=== PATIENT | female | born 1985 | race Caucasian/White ===

== ENCOUNTER → 2016-07-20 | Outpatient (CLI) | payer OTHER ==
[~2016-07-20] MED LIST: FISHCAP PO; IBUP-1114 PO; IBUP80TA PO; OMEGCAP9 PO; PERC5TAB6 PO; PNVTAB4 PO; PRENTAB45 PO; VITA-108 PO; VITACAP33 PO; VITAPRTA PO
== END ==
LOC: M LAB 13:01
PROVIDERS: ATTEND Specialist
DX: N91.2 Amenorrhea, unspecified (principal)

== ENCOUNTER → 2016-09-01 | Outpatient (REF) | payer OTHER | LOC: M LAB REF 13:08 | PROVIDERS: ATTEND Specialist | DX: R87.610 Atypical squamous cells of undetermined significance on cytologic smear of cervix (ASC-US) (principal) ==

== ENCOUNTER → 2018-01-19 | Outpatient (REF) | payer OTHER ==
[2018-01-22 09:05] LABS: Lyme Disease IgG/IgM Antibodie <0.91 ISR (0.00-0.90); Lyme Disease IgM Ab Quantitati <0.80 index (0.00-0.79)
== END ==
LOC: M LABNEURO 13:00
DX: A69.20 Lyme disease, unspecified (principal)

== ENCOUNTER → 2018-10-10 | Outpatient (REF) | payer OTHER ==
[~2018-10-10] MED LIST changes: +CHEW500C2 PO; +PERC5TAB12 PO; -PERC5TAB6 PO; +VITA100L PO
[2018-10-10 17:36] LABS: APPEARANCE, URINE CLEAR (CLEAR); BACTERIA, URINE AUTO NEGATIVE (NEGATIVE); BILIRUBIN, URINE AUTO NEGATIVE (NEGATIVE); BLOOD, URINE BLOOD 1+ (NEGATIVE); COLOR, URINE YELLOW (YELLOW); GLUCOSE, URINE (UA) AUTO NEGATIVE (NEGATIVE); KETONE, URINE AUTO NEGATIVE (NEGATIVE); LEUKOCYTE ESTERASE, URINE AUTO 1+ (NEGATIVE); NITRITE, URINE AUTO NEGATIVE (NEGATIVE); PROTEIN, URINE AUTO NEGATIVE (NEGATIVE); RBC, URINE AUTO 3 /HPF (0-3); SPECIFIC GRAVITY URINE AUTO 1.014 (1.002-1.035); SQUAMOUS EPITHELIAL CELL UR AU 0 /HPF (0-6); UROBILINOGEN, URINE AUTO 0.2 mg/dL (0.0-2.0); WBC, URINE AUTO 14 /HPF (0-3)
== END ==
LOC: M LAB REF 16:54
PROVIDERS: ATTEND Physician Assistant Medical
DX: N39.0 Urinary tract infection, site not specified (principal)

== ENCOUNTER → 2019-07-18 | Outpatient (REF) | payer OTHER ==
[~2019-07-18] MED LIST changes: +MULTCAP PO
[2019-07-18 16:02] LABS: URINE PREG TEST NEGATIVE (NEGATIVE)
== END ==
LOC: M LAB REF 14:18
PROVIDERS: ATTEND Physician Assistant
DX: Z00.00 Encounter for general adult medical examination without abnormal findings (principal)

== ENCOUNTER → 2019-07-24 | Outpatient (REF) | payer OTHER | LOC: M SFHCWAGY 16:45 | PROVIDERS: ATTEND Advanced Practice Midwife | DX: Z12.4 Encounter for screening for malignant neoplasm of cervix (principal) ==

== ENCOUNTER 2020-11-02 17:17 | Emergency (ER) | payer OTHER ==
[~2020-11-02] VITALS: Ht 175.3 cm; Wt 110.4 kg
[~2020-11-02 17:17] MED LIST changes: +CALC-362 PO; -CHEW500C2 PO
[2020-11-02] MEDS ORDERED: ESTA0.25 PO (17:32)
[2020-11-02] MEDS ORDERED: LIDOCAINE 1% MDV 20ML VIAL SC ONE (18:05)
[2020-11-02] MEDS ORDERED: BOOSTRIX/ADACEL VACCINE (DIPHTH/PERTUSS/ACELL/TETANUS) 0.5ML SYR IM ONE (18:05)
[2020-11-02] MEDS ORDERED: ONDANSETRON 4 MG ORAL DISINTEGRATING TAB PO ONE (18:05)
[2020-11-02] MEDS ORDERED: IBUPROFEN 600MG TAB PO ONE (18:05)
[2020-11-02] MEDS ORDERED: NEOSPORIN OINT 0.9 GM PKT TOP ONE (18:40)
[2020-11-02 18:57] VITALS: BP 140/86
== END 2020-11-02 19:10 | disposition home or self-care (01) ==
LOC: M ED 17:17
DX: S61.012A Laceration without foreign body of left thumb without damage to nail, initial encounter (principal); X58.XXXA Exposure to other specified factors, initial encounter; Y92.009 Unspecified place in unspecified non-institutional (private) residence as the place of occurrence of the external cause; Y93.89 Activity, other specified; Y99.9 Unspecified external cause status; J45.909 Unspecified asthma, uncomplicated; Z79.899 Other long term (current) drug therapy; Z79.3 Long term (current) use of hormonal contraceptives; Z88.8 Allergy status to other drugs, medicaments and biological substances
CPT/HCPCS: 12001; 90471; 90715; 99284; Q0162

== ENCOUNTER → 2021-04-17 | Outpatient (CLI) | payer OTHER ==
[~2021-04-17] MED LIST changes: +ESTA0.25 PO
--- NOTE | 2021-04-17 16:36 | REPMRS ---
Patient History The patient states she had a clinical breast exam in september 2020. No known family history of cancer. Taking hormonal contraceptives for 5 years. Pt denied . Patient states no breast complaints today. Patient has signed MRS History Sheet. Digital Woman Screen Mammo: April 17, 2021 - Exam #: [id number] Bilateral CC and MLO view(s) were taken. Technologist: Ling Breen, RT No prior studies available for comparison. FINDINGS: There are scattered fibroglandular densities. The Volpara volumetric breast density category is: B. There is no evidence of dominant mass, architectural distortion, or grouped microcalcification typical of malignancy. 3-D tomosynthesis shows no additional findings. Assessment: BI-RADS/ACR category 1 mammogram. Negative Mammogram. Recommendation Routine screening mammogram of both breasts in 1 year (for women over age 40). This patient's [facility] Lifetime Breast Cancer RIsk is estimated at 9.2 %. This mammogram was interpreted with the aid of an FDA-approved computer-aided dectection system. Electronically Signed By: Joss Grider MD 04/17/21 0105
== END ==
LOC: M WHC 15:20
PROVIDERS: ATTEND Specialist
DX: Z12.31 Encounter for screening mammogram for malignant neoplasm of breast (principal)

== ENCOUNTER → 2021-05-25 | Outpatient (REF) | payer OTHER | LOC: M SFHCWAGY 18:30 | PROVIDERS: ATTEND Specialist | DX: Z01.419 Encounter for gynecological examination (general) (routine) without abnormal findings (principal) ==

== ENCOUNTER → 2021-11-18 | Outpatient (CLI) | payer OTHER ==
[~2021-11-18] MED LIST changes: +PROHANCE 279.3MG/ML 15ML VIAL As Ordered ONE; +PROHANCE 279.3MG/ML 5ML VIAL As Ordered ONE
== END ==
LOC: M RAD 15:37
PROVIDERS: ATTEND Nurse Practitioner Family
DX: R51.9 Headache, unspecified (principal)
CPT/HCPCS: 70553; A9576

== ENCOUNTER → 2021-12-14 | Outpatient (CLI) | payer OTHER ==
[~2021-12-14] MED LIST changes: -PROHANCE 279.3MG/ML 15ML VIAL As Ordered ONE; -PROHANCE 279.3MG/ML 5ML VIAL As Ordered ONE
== END ==
LOC: M SLEEP HO 10:06
PROVIDERS: ATTEND Nurse Practitioner Family
DX: G47.00 Insomnia, unspecified (principal)

== ENCOUNTER 2022-09-23 11:31 | Emergency (ER) | payer OTHER ==
[~2022-09-23] VITALS: Ht 175.3 cm; Wt 113.3 kg
[2022-09-23] MEDS ORDERED: PRENTAB9 PO (11:50)
[2022-09-23] MEDS ORDERED: CETI-24 (11:50)
[2022-09-23] MEDS ORDERED: FLUTISP (11:50)
[2022-09-23 12:33] LABS: BASO % 0.3 % (0.0-1.0); EOS # 0.1 10^3/uL (0.0-0.5); EOS % 0.8 % (0.0-3.0); HEMATOCRIT 41.6 % (36.0-47.0); HEMOGLOBIN 13.2 g/dl (12.0-15.5); LYMPH # 1.9 10^3/uL (1.5-5.0); LYMPH % 29.8 % (24.0-44.0); MEAN CORPUSCULAR HEMOGLOBIN 27.2 pg (27.0-33.0); MEAN CORPUSCULAR HGB CONC 31.7 g/dl (32.0-36.5); MEAN CORPUSCULAR VOLUME 85.6 fl (80.0-96.0); MONO # 0.4 10^3/uL (0.0-0.8); MONO % 6.1 % (2.0-8.0); NEUTROPHILS # 3.9 10^3/uL (1.5-8.5); NEUTROPHILS % 62.7 % (36.0-66.0); PLATELET COUNT, AUTOMATED 244 10^3/uL (150-450); RED BLOOD COUNT 4.86 10^6/uL (4.00-5.40); WHITE BLOOD COUNT 6.2 10^3/uL (4.0-10.0)
[2022-09-23 13:02] LABS: BLOOD UREA NITROGEN 8 MG/DL (9-23); CALCIUM LEVEL 9.1 MG/DL (8.5-10.1); CARBON DIOXIDE LEVEL 28 MMOL/L (20-31); CHLORIDE LEVEL 105 MMOL/L (98-107); CREATININE FOR GFR 0.56 MG/DL (0.55-1.30); GLOMERULAR FILTRATION RATE > 60.0 (>60); GLUCOSE, FASTING 90 MG/DL (60-100); SODIUM LEVEL 140 MMOL/L (136-145)
[2022-09-23 13:16] LABS: HCG, SERUM QUANTITATIVE 4587.2 MIU/ML (<4.2)
[2022-09-23] MEDS ORDERED: ACETAMINOPHEN 500 MG TAB PO ONE (16:55)
[2022-09-23 17:50] LABS: BASO % 0.4 % (0.0-1.0); EOS # 0.1 10^3/uL (0.0-0.5); EOS % 0.9 % (0.0-3.0); HEMATOCRIT 40.4 % (36.0-47.0); HEMOGLOBIN 13.1 g/dl (12.0-15.5); LYMPH # 2.4 10^3/uL (1.5-5.0); MEAN CORPUSCULAR HEMOGLOBIN 27.5 pg (27.0-33.0); MEAN CORPUSCULAR HGB CONC 32.4 g/dl (32.0-36.5); MEAN CORPUSCULAR VOLUME 84.9 fl (80.0-96.0); MONO # 0.5 10^3/uL (0.0-0.8); MONO % 5.8 % (2.0-8.0); NEUTROPHILS % 62.6 % (36.0-66.0); PLATELET COUNT, AUTOMATED 252 10^3/uL (150-450); RED BLOOD COUNT 4.76 10^6/uL (4.00-5.40)
[2022-09-23] MEDS ORDERED: NS 1,000 ML IV ONE (20:05)
[2022-09-23 21:36] VITALS: BP 137/63
== END 2022-09-23 21:36 | disposition home or self-care (01) ==
LOC: M ED 11:31
DX: O20.8 Other hemorrhage in early pregnancy (principal); Z3A.01 Less than 8 weeks gestation of pregnancy

== ENCOUNTER → 2022-09-24 | Outpatient (CLI) | payer OTHER ==
[~2022-09-24] MED LIST changes: +CETI-24; +FLUTISP; +PRENTAB9 PO
== END ==
LOC: M PLALAB 12:56
PROVIDERS: ATTEND Specialist
DX: O00.90 Unspecified ectopic pregnancy without intrauterine pregnancy (principal)

== ENCOUNTER → 2022-09-29 | Outpatient (CLI) | payer OTHER | LOC: M PLALAB 13:12 | PROVIDERS: ATTEND Specialist | DX: N92.6 Irregular menstruation, unspecified (principal) ==

== ENCOUNTER 2022-09-30 14:21 | Emergency (ER) | payer OTHER ==
[~2022-09-30] VITALS: Ht 175.3 cm; Wt 111.7 kg
[2022-09-30 16:54] LABS: BASO % 0.4 % (0.0-1.0); EOS # 0.1 10^3/uL (0.0-0.5); HEMATOCRIT 39.7 % (36.0-47.0); HEMOGLOBIN 12.6 g/dl (12.0-15.5); LYMPH # 2.4 10^3/uL (1.5-5.0); LYMPH % 32.4 % (24.0-44.0); MEAN CORPUSCULAR HEMOGLOBIN 27.2 pg (27.0-33.0); MEAN CORPUSCULAR HGB CONC 31.7 g/dl (32.0-36.5); MEAN CORPUSCULAR VOLUME 85.6 fl (80.0-96.0); MONO # 0.5 10^3/uL (0.0-0.8); MONO % 6.7 % (2.0-8.0); NEUTROPHILS # 4.3 10^3/uL (1.5-8.5); NEUTROPHILS % 59.2 % (36.0-66.0); PLATELET COUNT, AUTOMATED 287 10^3/uL (150-450); RED BLOOD COUNT 4.64 10^6/uL (4.00-5.40); WHITE BLOOD COUNT 7.3 10^3/uL (4.0-10.0)
[2022-09-30 17:19] LABS: BLOOD UREA NITROGEN 11 MG/DL (9-23); CALCIUM LEVEL 9.2 MG/DL (8.5-10.1); CARBON DIOXIDE LEVEL 27 MMOL/L (20-31); CHLORIDE LEVEL 105 MMOL/L (98-107); CREATININE FOR GFR 0.94 MG/DL (0.55-1.30); GLOMERULAR FILTRATION RATE > 60.0 (>60); GLUCOSE, FASTING 77 MG/DL (60-100); HCG, SERUM QUANTITATIVE 59.1 MIU/ML (<4.2); SODIUM LEVEL 140 MMOL/L (136-145)
[2022-09-30] MEDS: NS 1,000 ML IV ONE ×2 (19:30→19:49)
[2022-09-30] MEDS ORDERED: ACETAMINOPHEN TAB 650MG DOSE (2X325MG) PO ONE (19:30)
[2022-09-30 20:24] LABS: APPEARANCE, URINE CLEAR (CLEAR); BACTERIA, URINE AUTO 1+ (NEGATIVE); BILIRUBIN, URINE AUTO NEGATIVE (NEGATIVE); BLOOD, URINE BLOOD 3+ (NEGATIVE); COLOR, URINE STRAW (YELLOW); GLUCOSE, URINE (UA) AUTO NEGATIVE (NEGATIVE); KETONE, URINE AUTO NEGATIVE (NEGATIVE); LEUKOCYTE ESTERASE, URINE AUTO NEGATIVE (NEGATIVE); NITRITE, URINE AUTO NEGATIVE (NEGATIVE); PROTEIN, URINE AUTO NEGATIVE (NEGATIVE); RBC, URINE AUTO 1 /HPF (0-3); SPECIFIC GRAVITY URINE AUTO 1.005 (1.002-1.035); SQUAMOUS EPITHELIAL CELL UR AU 1 /HPF (0-6); UROBILINOGEN, URINE AUTO 0.2 mg/dL (0.0-2.0); WBC, URINE AUTO 3 /HPF (0-3)
[2022-09-30 22:01] LABS: GC DNA AMPLIFICATION NEGATIVE (NEGATIVE)
[2022-09-30 23:34] VITALS: BP 149/87
[2022-10-01] MEDS ORDERED: IBUPROFEN 600MG TAB PO ONE (00:10)
== END 2022-10-01 01:20 | disposition home or self-care (01) ==
LOC: M ED 14:21
DX: O02.9 Abnormal product of conception, unspecified (principal); J45.909 Unspecified asthma, uncomplicated; Z88.4 Allergy status to anesthetic agent; Z79.899 Other long term (current) drug therapy

== ENCOUNTER → 2022-10-07 | Outpatient (CLI) | payer OTHER | LOC: M PLALAB 13:12 | PROVIDERS: ATTEND Advanced Practice Midwife | DX: O00.90 Unspecified ectopic pregnancy without intrauterine pregnancy (principal) ==

== ENCOUNTER 2023-01-05 10:20 | Emergency (ER) | payer OTHER ==
[~2023-01-05] VITALS: Ht 175.3 cm; Wt 113.4 kg
[2023-01-05 10:20] VITALS: TEMP 96.9
[~2023-01-05 10:20] MED LIST changes: +FLUT50SP17; -FLUTISP
[2023-01-05 11:51] LABS: BASO % 0.2 % (0.0-1.0); EOS % 0.6 % (0.0-3.0); HEMATOCRIT 41.2 % (36.0-47.0); HEMOGLOBIN 13.4 g/dl (12.0-15.5); LYMPH # 1.5 10^3/uL (1.5-5.0); LYMPH % 22.4 % (24.0-44.0); MEAN CORPUSCULAR HEMOGLOBIN 27.5 pg (27.0-33.0); MEAN CORPUSCULAR HGB CONC 32.5 g/dl (32.0-36.5); MEAN CORPUSCULAR VOLUME 84.6 fl (80.0-96.0); MONO # 0.3 10^3/uL (0.0-0.8); MONO % 4.9 % (2.0-8.0); NEUTROPHILS # 4.7 10^3/uL (1.5-8.5); NEUTROPHILS % 71.4 % (36.0-66.0); PLATELET COUNT, AUTOMATED 222 10^3/uL (150-450); RED BLOOD COUNT 4.87 10^6/uL (4.00-5.40); WHITE BLOOD COUNT 6.5 10^3/uL (4.0-10.0)
[2023-01-05 12:21] LABS: LIPASE 31 U/L (12-53)
[2023-01-05 12:23] LABS: ALBUMIN 3.2 G/DL (3.2-5.2); ALKALINE PHOSPHATASE 61 U/L (46-116); ALT/SGPT 17 U/L (7.0-40); AST/SGOT < 8 U/L (<34); BILIRUBIN,DIRECT 0.1 MG/DL (<0.4); BILIRUBIN,TOTAL 0.4 MG/DL (0.3-1.2); TOTAL PROTEIN 6.5 G/DL (5.7-8.2)
[2023-01-05 12:59] LABS: HCG, SERUM QUANTITATIVE 129594.1 MIU/ML (<4.2)
[2023-01-05 13:56] LABS: GC DNA AMPLIFICATION NEGATIVE (NEGATIVE)
[2023-01-05] MEDS ORDERED: NITR-67 PO (14:29)
[2023-01-05 14:42] VITALS: BP 136/78; O2SAT 98
== END 2023-01-05 15:05 | disposition home or self-care (01) ==
LOC: M ED 10:20
DX: O23.31 Infections of other parts of urinary tract in pregnancy, first trimester (principal); Z3A.01 Less than 8 weeks gestation of pregnancy; Z88.4 Allergy status to anesthetic agent; Z79.899 Other long term (current) drug therapy

== ENCOUNTER → 2023-02-23 | Outpatient (CLI) | payer OTHER ==
[~2023-02-23] MED LIST changes: +NITR-67 PO
[2023-02-23 15:38] LABS: HEMOGLOBIN 13.1 g/dl (12.0-15.5); MEAN CORPUSCULAR HEMOGLOBIN 28.2 pg (27.0-33.0); MEAN CORPUSCULAR HGB CONC 32.8 g/dl (32.0-36.5); PLATELET COUNT, AUTOMATED 208 10^3/uL (150-450); RED BLOOD COUNT 4.65 10^6/uL (4.00-5.40); WHITE BLOOD COUNT 8.5 10^3/uL (4.0-10.0)
[2023-02-23 16:44] LABS: HIV 1&2 SCREEN NEGATIVE (NEGATIVE)
[2023-02-23 16:52] LABS: HEPATITIS C VIRUS ABY INDEX 0.13 INDEX (<0.8)
[2023-02-23 16:54] LABS: GC DNA AMPLIFICATION NEGATIVE (NEGATIVE)
== END ==
LOC: M PLALAB 14:10
PROVIDERS: ATTEND Specialist
DX: Z34.81 Encounter for supervision of other normal pregnancy, first trimester (principal)

== ENCOUNTER → 2023-05-06 | Outpatient (CLI) | payer OTHER ==
[2023-05-06 14:54] LABS: HEMOGLOBIN 12.1 g/dl (12.0-15.5); MEAN CORPUSCULAR HGB CONC 32.7 g/dl (32.0-36.5); MEAN CORPUSCULAR VOLUME 88.7 fl (80.0-96.0); PLATELET COUNT, AUTOMATED 180 10^3/uL (150-450); RED BLOOD COUNT 4.17 10^6/uL (4.00-5.40); WHITE BLOOD COUNT 5.2 10^3/uL (4.0-10.0)
[2023-05-06 16:25] LABS: GC DNA AMPLIFICATION NEGATIVE (NEGATIVE)
== END ==
LOC: M PLALAB 09:49
PROVIDERS: ATTEND Specialist
DX: Z36.9 Encounter for antenatal screening, unspecified (principal)

== ENCOUNTER → 2023-05-06 | Outpatient (CLI) | payer OTHER | LOC: M WHC 09:41 | PROVIDERS: ATTEND Specialist | DX: Z34.82 Encounter for supervision of other normal pregnancy, second trimester (principal); Z3A.24 24 weeks gestation of pregnancy ==

== ENCOUNTER → 2023-07-13 | Outpatient (REF) | payer OTHER ==
[~2023-07-13] MED LIST changes: -FLUT50SP17; +FLUTISP
== END ==
LOC: M SFHCWAGY 12:47 → M LAB REF 12:47
PROVIDERS: ATTEND Specialist
DX: Z34.83 Encounter for supervision of other normal pregnancy, third trimester (principal)

== ENCOUNTER 2023-07-28 06:08 | Inpatient (IN) | payer OTHER ==
[2023-07-28] VITALS (7 sets, daily range): BP systolic 98–133; BP diastolic 53–74; TEMP 97.4; O2SAT 95–98
[~2023-07-28] VITALS: Ht 175.3 cm; Wt 73.9 kg
[~2023-07-28 06:08] MED LIST changes: -CETI-24; +CETI-24 PO; +RINSE
[2023-07-28] MEDS ORDERED: LR 1,000 ML IV SCH (06:10)
[2023-07-28] MEDS ORDERED: LACTATED RINGER'S 1000 ML IV STA (06:10)
[2023-07-28] MEDS ORDERED: ceFAZolin SOD 2 GM in IV 1 EA IV ONE (06:10)
[2023-07-28 06:59] LABS: HEMATOCRIT 37.5 % (36.0-47.0); HEMOGLOBIN 12.7 g/dl (12.0-15.5); MEAN CORPUSCULAR HEMOGLOBIN 29.1 pg (27.0-33.0); MEAN CORPUSCULAR HGB CONC 33.9 g/dl (32.0-36.5); PLATELET COUNT, AUTOMATED 212 10^3/uL (150-450); RED BLOOD COUNT 4.36 10^6/uL (4.00-5.40); WHITE BLOOD COUNT 9.2 10^3/uL (4.0-10.0)
[2023-07-28] MEDS ORDERED: BICITRA 30ML SOLN UDC PO ONE (07:00)
[2023-07-28] MEDS ORDERED: OXYTOCIN INJ 10UNITS/ML 1ML VIAL As Ordered ONE (07:24)
[2023-07-28] MEDS ORDERED: MORPHINE PRES-FREE INJ 10 MG/10 ML VIAL As Ordered ONE (07:24)
[2023-07-28] MEDS ORDERED: ONDANSETRON 4MG 2ML VIAL As Ordered ONE (07:24)
[2023-07-28] MEDS ORDERED: PHENYLephrine 500MCG 5ML (100MCG/ML) SYRINGE As Ordered ONE (07:24)
[2023-07-28] MEDS ORDERED: KETOROLAC 60MG 2ML VIAL As Ordered ONE (07:24)
[2023-07-28 08:25] LABS: CORD GAS ABE V -2.2; CORD GAS HCO3 V 24.2 MMOL/L; CORD GAS O2 SAT V 75.5 %; CORD GAS PCO2 V 47.8 mmHg; CORD GAS PH V 7.322 UNITS; CORD GAS PO2 V 34.2 mmHg; CORD GAS SBC V 22.1 MMOL/L; CORD GAS TCO2 V 25.7 MMOL/L
[2023-07-28 08:29] LABS: CORD GAS ABE A -2.5; CORD GAS HCO3 A 24.6 MMOL/L; CORD GAS O2 SAT A 42.7 %; CORD GAS PCO2 A 51.4 mmHg; CORD GAS PH A 7.298 UNITS; CORD GAS PO2 A 19.7 mmHg; CORD GAS SBC A 21.1 MMOL/L; CORD GAS TCO2 A 26.2 MMOL/L
[2023-07-28] MEDS ORDERED: ONDANSETRON 4MG 2ML VIAL IV PRN ×2 (08:50→08:55)
[2023-07-28] MEDS: LR 1,000 ML IV SCH ×3 (08:50→15:06)
[2023-07-28] MEDS ORDERED: OXYTOCIN DRIP 30 UNITS in IV 1 EA IV SCH (08:50)
[2023-07-28] MEDS ORDERED: RHOGAM 300MCG (1500IU) INJ IM SCH (08:50)
[2023-07-28] MEDS ORDERED: fentaNYL 100 MCG/2 ML INJECTION IV PRN (08:55)
[2023-07-28] MEDS ORDERED: **NOTE PATIENT COMMENT** MISC XX SCH (08:55)
[2023-07-28] MEDS: SLF 3 ML SYR IV SCH ×2 (08:55→16:55)
[2023-07-28] MEDS ORDERED: oxyCODONE 5MG TAB PO PRN (08:55)
[2023-07-28] MEDS ORDERED: METOCLOPRAMIDE INJ 10MG/2ML VIAL IV PRN (08:55)
[2023-07-28] MEDS ORDERED: diphenhydrAMINE 50MG/ML VIAL IV PRN (08:55)
[2023-07-28] MEDS ORDERED: NALOXONE INJ 0.4MG/1ML VIAL IV PRN ×2 (08:55)
[2023-07-28] MEDS: PRENATAL VITAMINS CHEWABLE TABLET PO SCH (09:00)
[2023-07-28] MEDS ORDERED: OXYTOCIN 30UNITS IN 0.9% NaCl 500ML IV BAG As Ordered ONE (09:18)
[2023-07-28] MEDS ORDERED: oxyCODONE 5MG TAB As Ordered ONE (09:52)
[2023-07-28] MEDS: KETOROLAC 30 MG/ML 1ML VIAL IV SCH ×2 (15:06→20:11)
[2023-07-28] MEDS ORDERED: IBUP80TA PO (23:51)
[2023-07-28] MEDS ORDERED: OXYC1TAB23 PO (23:52)
[2023-07-28] MEDS ORDERED: COLA100C5 PO (23:53)
[2023-07-29] MEDS: SLF 3 ML SYR IV SCH (00:55)
[2023-07-29] MEDS: PERCOCET 5MG/325MG TAB PO PRN ×5 (01:30→23:24)
[2023-07-29 02:00] VITALS: BP 132/66; O2SAT 100
[2023-07-29] MEDS: KETOROLAC 30 MG/ML 1ML VIAL IV SCH (03:23)
[2023-07-29 06:00] VITALS: BP 90/53; O2SAT 96
[2023-07-29] MEDS: PRENATAL VITAMINS CHEWABLE TABLET PO SCH (08:59)
[2023-07-29] MEDS: SIMETHICONE 80MG CHEW TAB PO PRN ×2 (09:26→17:36)
[2023-07-29 09:58] LABS: HEMATOCRIT 34.6 % (36.0-47.0); HEMOGLOBIN 11.2 g/dl (12.0-15.5); MEAN CORPUSCULAR HEMOGLOBIN 28.3 pg (27.0-33.0); MEAN CORPUSCULAR HGB CONC 32.4 g/dl (32.0-36.5); MEAN CORPUSCULAR VOLUME 87.4 fl (80.0-96.0); PLATELET COUNT, AUTOMATED 181 10^3/uL (150-450); RED BLOOD COUNT 3.96 10^6/uL (4.00-5.40); WHITE BLOOD COUNT 8.2 10^3/uL (4.0-10.0)
[2023-07-29] MEDS: IBUPROFEN 800 MG TAB PO SCH ×2 (11:00→18:04)
[2023-07-29 14:00] VITALS: BP 145/64; O2SAT 96
[2023-07-29] MEDS: DOCUSATE SODIUM 100MG CAPSULE PO PRN (14:04)
[2023-07-29 18:00] VITALS: BP 141/84; O2SAT 97
[2023-07-29 22:00] VITALS: BP 130/75; O2SAT 98
[2023-07-30] MEDS ORDERED: MORPHINE 4 MG/ML 1ML VIAL IV STA (00:39)
[2023-07-30 02:00] VITALS: BP 128/71
[2023-07-30] MEDS: IBUPROFEN 800 MG TAB PO SCH (02:50)
[2023-07-30 06:00] VITALS: BP 131/78; O2SAT 98
[2023-07-30] MEDS: PERCOCET 5MG/325MG TAB PO PRN (06:14)
[2023-07-30] MEDS: SIMETHICONE 80MG CHEW TAB PO PRN ×2 (06:25→14:12)
[2023-07-30] MEDS: DOCUSATE SODIUM 100MG CAPSULE PO PRN ×2 (06:25→14:12)
[2023-07-30 07:42] VITALS: O2SAT 98
[2023-07-30] MEDS: PRENATAL VITAMINS CHEWABLE TABLET PO SCH (08:21)
[2023-07-30] MEDS ORDERED: MEASLES,MUMPS,RUBELLA VACCINE INJ (MMR-II) SC.IMMUN ONE (09:00)
[2023-07-30 10:00] VITALS: BP 160/70; O2SAT 99
[2023-07-30] MEDS ORDERED: oxyCODONE 5MG TAB PO PRN (10:35)
[2023-07-30] MEDS: IBUPROFEN 600MG TAB PO SCH ×3 (11:29→23:03)
[2023-07-30] MEDS: ACETAMINOPHEN 500 MG TAB PO SCH ×2 (11:30→17:50)
[2023-07-30 14:00] VITALS: BP 134/63; O2SAT 96
[2023-07-30] MEDS: oxyCODONE 5MG TAB PO PRN ×2 (14:13→14:16)
[2023-07-30 18:00] VITALS: BP 131/68; O2SAT 98
[2023-07-31] MEDS: ACETAMINOPHEN 500 MG TAB PO SCH ×2 (00:05→05:34)
[2023-07-31] MEDS: oxyCODONE 5MG TAB PO PRN ×2 (03:05→08:38)
[2023-07-31] MEDS: IBUPROFEN 600MG TAB PO SCH ×2 (05:34→10:44)
[2023-07-31 06:22] VITALS: BP 132/66; O2SAT 98
[2023-07-31] MEDS ORDERED: IBUP-1022 PO (08:29)
[2023-07-31] MEDS ORDERED: OXYC-517 PO (08:29)
[2023-07-31] MEDS ORDERED: ACET-683 PO (08:29)
[2023-07-31] MEDS: SIMETHICONE 80MG CHEW TAB PO PRN (08:36)
[2023-07-31] MEDS: DOCUSATE SODIUM 100MG CAPSULE PO PRN (08:36)
[2023-07-31] MEDS: PRENATAL VITAMINS CHEWABLE TABLET PO SCH (08:36)
== END 2023-07-31 10:56 | disposition home or self-care (01) | DRG 540 ==
LOC: M LDI 06:08 → M OBS 10:33
PROVIDERS: ADMIT Specialist; ATTEND Specialist
PROC: 10D00Z1 Extraction of Products of Conception, Low, Open Approach (ICD-10-PCS; principal; 2023-07-28 07:30)
DX: O34.211 Maternal care for low transverse scar from previous cesarean delivery (principal); Z3A.37 37 weeks gestation of pregnancy; Z37.0 Single live birth

== ENCOUNTER → 2023-08-24 | Outpatient (REF) | payer OTHER, MEDICAID ==
[~2023-08-24] MED LIST changes: +ACET-683 PO; +COLA100C5 PO; +IBUP-1022 PO; +OXYC-517 PO; +OXYC1TAB23 PO
== END ==
LOC: M SFHCWAGY 10:01
PROVIDERS: ATTEND Specialist
DX: R30.0 Dysuria (principal)

== ENCOUNTER → 2023-09-21 | Outpatient (REF) | payer OTHER, MEDICAID | LOC: M SFHCWAGY 16:53 | PROVIDERS: ATTEND Specialist | DX: R30.0 Dysuria (principal) ==

== ENCOUNTER → 2024-11-06 | Outpatient (CLI) | payer MEDICAID, OTHER ==
[2024-11-06 17:41] LABS: HEMATOCRIT 42.3 % (36.0-47.0); HEMOGLOBIN 13.7 g/dl (12.0-15.5); MEAN CORPUSCULAR HEMOGLOBIN 27.7 pg (27.0-33.0); MEAN CORPUSCULAR HGB CONC 32.4 g/dl (32.0-36.5); MEAN CORPUSCULAR VOLUME 85.6 fl (80.0-96.0); PLATELET COUNT, AUTOMATED 230 10^3/uL (150-450); RED BLOOD COUNT 4.94 10^6/uL (4.00-5.40); WHITE BLOOD COUNT 7.6 10^3/uL (4.0-10.0)
[2024-11-06 18:41] LABS: HIV 1&2 SCREEN NEGATIVE (NEGATIVE)
[2024-11-06 18:50] LABS: HEPATITIS C VIRUS ABY INDEX 0.03 INDEX (<0.8)
== END ==
LOC: M PLALAB 15:40
PROVIDERS: ATTEND Specialist
DX: Z34.81 Encounter for supervision of other normal pregnancy, first trimester (principal)

== ENCOUNTER → 2024-11-30 | Outpatient (REF) | payer OTHER ==
[~2024-11-30] MED LIST changes: +AZO1CAP PO; +FLUC150T9 PO
[2024-11-30 18:29] LABS: Trichomonas vaginalis (AMP) NOT DETECTED (NEGATIVE)
[2024-11-30 18:52] LABS: GC DNA AMPLIFICATION NEGATIVE (NEGATIVE)
== END ==
LOC: M PLALAB 15:48
PROVIDERS: ATTEND Specialist
DX: Z34.81 Encounter for supervision of other normal pregnancy, first trimester (principal)

== ENCOUNTER → 2025-01-18 | Outpatient (CLI) | payer OTHER ==
[~2025-01-18] MED LIST changes: -AZO1CAP PO; -FLUC150T9 PO
== END ==
LOC: M RAD 16:00
PROVIDERS: ATTEND Specialist
DX: Z34.82 Encounter for supervision of other normal pregnancy, second trimester (principal)

== ENCOUNTER 2025-01-26 07:47 | Outpatient (CLI) | payer OTHER ==
[~2025-01-26] VITALS: Ht 175.3 cm; Wt 118.4 kg
[2025-01-26 08:08] VITALS: BP 111/61
[2025-01-26] MEDS ORDERED: AZO1CAP PO (08:13)
[2025-01-26] MEDS ORDERED: FLUC150T9 PO (08:13)
[2025-01-26 09:00] LABS: APPEARANCE, URINE HAZY (CLEAR); BACTERIA, URINE AUTO NEGATIVE (NEGATIVE); BILIRUBIN, URINE AUTO NEGATIVE (NEGATIVE); BLOOD, URINE BLOOD NEGATIVE (NEGATIVE); GLUCOSE, URINE (UA) AUTO NEGATIVE (NEGATIVE); KETONE, URINE AUTO TRACE mg/dL (NEGATIVE); LEUKOCYTE ESTERASE, URINE AUTO NEGATIVE (NEGATIVE); MUCUS, URINE SMALL (NEGATIVE); NITRITE, URINE AUTO NEGATIVE (NEGATIVE); PROTEIN, URINE AUTO NEGATIVE (NEGATIVE); RBC, URINE AUTO 2 /HPF (0-3); SPECIFIC GRAVITY URINE AUTO 1.023 (1.002-1.035); SQUAMOUS EPITHELIAL CELL UR AU 2 /HPF (0-6); UROBILINOGEN, URINE AUTO 0.2 mg/dL (0.0-2.0); WBC, URINE AUTO 3 /HPF (0-3)
== END 2025-01-26 12:50 | disposition home or self-care (01) ==
LOC: M LDO 07:47
PROVIDERS: ATTEND Obstetrics & Gynecology
DX: O26.892 Other specified pregnancy related conditions, second trimester (principal); M54.50 Low back pain, unspecified; M79.605 Pain in left leg; O44.42 Low lying placenta NOS or without hemorrhage, second trimester; O09.522 Supervision of elderly multigravida, second trimester; O34.219 Maternal care for unspecified type scar from previous cesarean delivery; Z3A.22 22 weeks gestation of pregnancy
CPT/HCPCS: 59025; 76775; 81001; G0463

== ENCOUNTER 2025-02-22 19:54 | Outpatient (CLI) | payer OTHER ==
[~2025-02-22] VITALS: Ht 175.3 cm; Wt 118.5 kg
[~2025-02-22 19:54] MED LIST changes: +AZO1CAP PO; +FLUC150T9 PO
[2025-02-22 20:38] VITALS: BP 126/71
[2025-02-22 21:35] LABS: KETONE, URINE AUTO RFX NEGATIVE (NEGATIVE); LEUKOCYTE ESTERASE UR AUTO RFX NEGATIVE (NEGATIVE); MUCUS, URINE RFX SMALL (NEGATIVE); NITRITE, URINE AUTO RFX NEGATIVE (NEGATIVE); RBC, URINE AUTO RFX 4 /HPF (0-3); SQUAM EPITHELIAL CELL UR AURFX 4 /HPF (0-6); WBC, URINE AUTO RFX 1 /HPF (0-3)
[2025-02-22 22:52] LABS: ALT/SGPT 14 U/L (7.0-40); AST/SGOT 19 U/L (<34); CALCIUM LEVEL 9.0 MG/DL (8.5-10.1); CARBON DIOXIDE LEVEL 24 MMOL/L (20-31); CHLORIDE LEVEL 107 MMOL/L (98-107); CREATININE FOR GFR 0.44 MG/DL (0.55-1.30); GLOMERULAR FILTRATION RATE > 90.0 (>58); POTASSIUM SERUM 4.0 MMOL/L (3.5-5.1); SODIUM LEVEL 144 MMOL/L (136-145)
[2025-02-22 23:13] LABS: BASO # 0.0 10^3/uL (0.0-0.2); BASO % 0.1 % (0.0-1.0); EOS # 0.1 10^3/uL (0.0-0.5); EOS % 0.9 % (0.0-3.0); LYMPH # 1.7 10^3/uL (1.5-5.0); LYMPH % 20.5 % (24.0-44.0); MONO # 0.5 10^3/uL (0.0-0.8); MONO % 6.1 % (2.0-8.0); NEUTROPHILS # 6.1 10^3/uL (1.5-8.5); NEUTROPHILS % 71.6 % (36.0-66.0); PLATELET COUNT, AUTOMATED 193 10^3/uL (150-450)
[2025-02-22 23:32] LABS: Trichomonas vaginalis (AMP) NOT DETECTED (NEGATIVE)
[2025-02-22 23:56] LABS: GC DNA AMPLIFICATION NEGATIVE (NEGATIVE)
== END 2025-02-23 00:55 | disposition home or self-care (01) ==
LOC: M LDO 19:54
PROVIDERS: ATTEND Advanced Practice Midwife
DX: O26.892 Other specified pregnancy related conditions, second trimester (principal); O24.420 Gestational diabetes mellitus in childbirth, diet controlled; O09.522 Supervision of elderly multigravida, second trimester; O43.212 Placenta accreta, second trimester; R10.2 Pelvic and perineal pain; Z3A.26 26 weeks gestation of pregnancy
CPT/HCPCS: 59025; 76815; 76817; 80053; 81001; 85025; 87661; 87810; 87850; G0463

== ENCOUNTER 2025-04-12 11:03 | Outpatient (CLI) | payer OTHER ==
[~2025-04-12] VITALS: Ht 175.3 cm; Wt 122.7 kg
[~2025-04-12 11:03] MED LIST changes: -IBUP-1022 PO; +IBUP600T42 PO
[2025-04-12] MEDS ORDERED: HOME MED LIST COMPLETE! XX SCH (11:20)
[2025-04-12 11:24] VITALS: BP 133/63
[2025-04-12] MEDS: BETAMETHASONE SOLUSPAN 6 MG/ML 5 ML VIAL IM ONE (11:45)
[2025-04-12 12:48] VITALS: BP 131/60
== END 2025-04-12 14:15 | disposition home or self-care (01) ==
LOC: M LDO 11:03
PROVIDERS: ATTEND Advanced Practice Midwife
DX: O43.213 Placenta accreta, third trimester (principal); O24.410 Gestational diabetes mellitus in pregnancy, diet controlled; O09.523 Supervision of elderly multigravida, third trimester; O26.23 Pregnancy care for patient with recurrent pregnancy loss, third trimester; O34.219 Maternal care for unspecified type scar from previous cesarean delivery; Z3A.33 33 weeks gestation of pregnancy
CPT/HCPCS: 59025; 76815; 76816; 76819; 76820; 96372; G0463; J0702

== ENCOUNTER 2025-04-13 12:58 | Outpatient (CLI) | payer OTHER ==
[~2025-04-13] VITALS: Ht 175.3 cm; Wt 123.5 kg
[2025-04-13] MEDS: BETAMETHASONE SOLUSPAN 6 MG/ML 5 ML VIAL IM ONE (13:25)
== END 2025-04-13 14:55 | disposition home or self-care (01) ==
LOC: M LDO 12:58
PROVIDERS: ATTEND Specialist
DX: O43.213 Placenta accreta, third trimester (principal); O24.410 Gestational diabetes mellitus in pregnancy, diet controlled; O09.523 Supervision of elderly multigravida, third trimester; O34.219 Maternal care for unspecified type scar from previous cesarean delivery; Z3A.33 33 weeks gestation of pregnancy
CPT/HCPCS: 59025; 96372; G0463; J0702

== ENCOUNTER 2025-04-20 13:09 | Outpatient (CLI) | payer OTHER ==
[~2025-04-20] VITALS: Ht 175.3 cm; Wt 121.0 kg
[2025-04-20 13:36] VITALS: BP 143/77
[2025-04-20] MEDS ORDERED: TUMS750C5 PO (14:10)
[2025-04-20 14:13] VITALS: BP 147/84
== END 2025-04-20 15:24 | disposition home or self-care (01) ==
LOC: M LDO 13:09
PROVIDERS: ATTEND Student in an Organized Health Care Education/Training Program
DX: O43.213 Placenta accreta, third trimester (principal); O09.523 Supervision of elderly multigravida, third trimester; O24.410 Gestational diabetes mellitus in pregnancy, diet controlled; O34.219 Maternal care for unspecified type scar from previous cesarean delivery; O99.213 Obesity complicating pregnancy, third trimester; E66.9 Obesity, unspecified; Z3A.34 34 weeks gestation of pregnancy
CPT/HCPCS: 36415; 59025; 86850; 86900; 86901; 86920; G0463

== ENCOUNTER 2025-04-22 05:25 | Inpatient (IN) | payer OTHER ==
[~2025-04-22] VITALS: Ht 175.3 cm; Wt 122.0 kg
[2025-04-22] VITALS (33 sets, daily range): BP systolic 95–181; BP diastolic 53–92; TEMP 97–97.1; O2SAT 88–100
[~2025-04-22 05:25] MED LIST changes: +TUMS750C5 PO
[2025-04-22] MEDS: LACTATED RINGER'S 1000 ML IV STA (05:26)
[2025-04-22] MEDS: ceFAZolin SODIUM 2 GM in DEXTROSE 5% (D5W) ADV/MINI-BAG 50 ML IV ONE (05:30)
[2025-04-22] MEDS ORDERED: HOME MED LIST COMPLETE! XX SCH ×2 (05:50→17:35)
[2025-04-22 06:47] LABS: PLATELET COUNT, AUTOMATED 190 10^3/uL (150-450)
[2025-04-22] MEDS ORDERED: dexAMETHasone 4 MG/ML 1 ML VIAL As Ordered ONE (06:51)
[2025-04-22] MEDS ORDERED: ONDANSETRON 4MG/2ML VIAL As Ordered ONE (06:51)
[2025-04-22] MEDS ORDERED: ROCURONIUM BROMIDE 50MG/5ML VIAL As Ordered ONE (06:52)
[2025-04-22] MEDS ORDERED: LIDOCAINE 2% 100 MG/5 ML SDV (FOR ANES.) As Ordered ONE (06:55)
[2025-04-22] MEDS: METHYLERGONOVINE MALEATE 0.2 MG/ML 1 ML VIAL As Ordered ONE (07:00)
[2025-04-22] MEDS: CARBOPROST TROMETHAMINE 250 MCG/ML AMP As Ordered ONE (07:00)
[2025-04-22] MEDS ORDERED: OXYTOCIN 30UNITS IN 0.9% NaCl 500ML IV BAG IV ONE (07:00)
[2025-04-22] MEDS ORDERED: SUCCINYLCHOLINE 100MG/5ML SYRINGE As Ordered ONE (07:12)
[2025-04-22] MEDS: LR 1,000 ML IV SCH (07:25)
[2025-04-22] MEDS: HEPARIN 1,000 UNITS/ML 10 ML VIAL (FOR RADIOLOGY & DIALYSIS ONLY) As Ordered ONE (08:00)
[2025-04-22] MEDS ORDERED: SUGAMMADEX SODIUM 500 MG/5 ML VIAL As Ordered ONE (08:28)
[2025-04-22] MEDS ORDERED: ACETAMINOPHEN 1000MG/100ML IV BAG As Ordered ONE (08:30)
[2025-04-22 08:54] LABS: HIV 1&2 SCREEN NEGATIVE (NEGATIVE)
[2025-04-22] MEDS ORDERED: HYDROmorphone HCL 2 MG/ML 1 ML VIAL As Ordered ONE (08:54)
[2025-04-22 09:02] LABS: HEPATITIS C VIRUS ABY INDEX < 0.02 INDEX (<0.8)
[2025-04-22 09:08] LABS: CORD GAS ABE A -5.6; CORD GAS ABE V -2.3; CORD GAS HCO3 A 22.9 MMOL/L; CORD GAS HCO3 V 24.4 MMOL/L; CORD GAS O2 SAT A 44.0 %; CORD GAS O2 SAT V 85.2 %; CORD GAS PCO2 A 58.1 mmHg; CORD GAS PCO2 V 49.7 mmHg; CORD GAS PH A 7.214 UNITS; CORD GAS PH V 7.309 UNITS; CORD GAS PO2 A 21.7 mmHg; CORD GAS PO2 V 41.6 mmHg; CORD GAS SBC A 18.7 MMOL/L; CORD GAS SBC V 22.3 MMOL/L; CORD GAS TCO2 A 24.7 MMOL/L; CORD GAS TCO2 V 25.9 MMOL/L
[2025-04-22] MEDS ORDERED: MIDAZOLAM INJ 2 MG/2 ML VIAL As Ordered ONE (09:21)
[2025-04-22] MEDS ORDERED: CALCIUM CHLORIDE 10% 1 GM/10 ML SYR As Ordered ONE (09:33)
[2025-04-22] MEDS ORDERED: PHENYLephrine 500MCG 5ML (100MCG/ML) SYRINGE As Ordered ONE (09:44)
[2025-04-22] MEDS ORDERED: VASOPRESSIN INJ 20UNITS/ML 1ML VIAL As Ordered ONE (09:47)
[2025-04-22] MEDS ORDERED: PHENYLEPHRINE 10MG/ML 1ML VIAL As Ordered ONE (10:11)
[2025-04-22] MEDS ORDERED: EPINEPHrine 1 MG/10 ML SYRINGE 1.5IN As Ordered ONE (10:39)
[2025-04-22] MEDS: TRANEXAMIC ACID 100 MG/ML 10ML VIAL As Ordered ONE (10:58)
[2025-04-22] MEDS ORDERED: SODIUM BICARBONATE 8.4% INJ 50ML SYRINGE As Ordered ONE (10:59)
[2025-04-22] MEDS: INSULIN LISPRO (NovoLOG) PER UNIT As Ordered ONE (11:16)
[2025-04-22] MEDS ORDERED: MORPHINE 4 MG/ML 1 ML VIAL IV PRN (12:15)
[2025-04-22] MEDS ORDERED: GLUCOSE 4 GM CHEW PO PRN (12:40)
[2025-04-22] MEDS ORDERED: DEXTROSE 50% 50 ML SYRINGE IV PRN (12:40)
[2025-04-22] MEDS ORDERED: GLUCAGON INJ 1 MG VIAL SC PRN (12:40)
[2025-04-22] MEDS ORDERED: SODIUM BICARBONATE 8.4% INJ 50MEQ/50ML VIAL As Ordered ONE (12:51)
[2025-04-22] MEDS: ONDANSETRON 4MG/2ML VIAL IV PRN (12:56)
[2025-04-22] MEDS: INSULIN LISPRO (NovoLOG) PER UNIT SC PRN (13:04)
[2025-04-22] MEDS: ACETAMINOPHEN *IV* 1,000 MG in IV 1 EA IV SCH (15:23)
[2025-04-22 15:27] LABS: PLATELET COUNT, AUTOMATED 130 10^3/uL (150-450)
[2025-04-22 15:37] LABS: INR 1.2
[2025-04-22 15:50] LABS: LYMPHOCYTES 7 % (16-44); METAMYELOCYTES 1 % (0-0); MONOCYTES 4 % (0-5); MYELOCYTES 3 % (0-0); NEUTROPHILS 74 % (28-66); PLATELET ESTIMATE DECREASED (NORMAL)
[2025-04-22 16:02] LABS: ALT/SGPT 46 U/L (7.0-40); AST/SGOT 62 U/L (<34); CALCIUM LEVEL 7.0 MG/DL (8.5-10.1); CARBON DIOXIDE LEVEL 23 MMOL/L (20-31); CHLORIDE LEVEL 111 MMOL/L (98-107); CREATININE FOR GFR 0.75 MG/DL (0.55-1.30); GLOMERULAR FILTRATION RATE > 90.0 (>58); MAGNESIUM LEVEL 1.2 MG/DL (1.8-2.4); PHOSPHORUS LEVEL 4.0 MG/DL (2.5-4.9); POTASSIUM SERUM 4.6 MMOL/L (3.5-5.1); SODIUM LEVEL 143 MMOL/L (136-145)
[2025-04-22] MEDS: CALCIUM GLUCONATE 1,000 MG in DEXTROSE 5% (D5W) MINI-BAG PLU 100 ML IV SCH (16:21)
[2025-04-22] MEDS: MAG SULF 1GM/100ML (MAG RUN) 1 GM in IV 1 EA IV SCH (17:06)
[2025-04-22] MEDS: PANTOPRAZOLE 40MG VIAL IV SCH (17:07)
[2025-04-22] MEDS ORDERED: PREN1CHW6 PO (17:34)
[2025-04-22] MEDS ORDERED: ACET-897 PO (17:34)
[2025-04-22] MEDS: DOCUSATE SODIUM 100 MG CAPSULE PO SCH (20:10)
[2025-04-22] MEDS: SENNA 8.6 MG TAB PO SCH (20:10)
[2025-04-22 20:21] LABS: BASO # 0.0 10^3/uL (0.0-0.2); BASO % 0.2 % (0.0-1.0); EOS # 0.0 10^3/uL (0.0-0.5); EOS % 0.1 % (0.0-3.0); LYMPH # 1.0 10^3/uL (1.5-5.0); LYMPH % 5.6 % (24.0-44.0); MONO # 1.0 10^3/uL (0.0-0.8); MONO % 5.5 % (2.0-8.0); NEUTROPHILS # 15.6 10^3/uL (1.5-8.5); NEUTROPHILS % 84.8 % (36.0-66.0); PLATELET COUNT, AUTOMATED 114 10^3/uL (150-450)
[2025-04-22] MEDS ORDERED: ACETAMINOPHEN *IV* 1,000 MG in IV 1 EA IV SCH (21:00)
[2025-04-22] MEDS: SIMETHICONE 80MG CHEW TAB PO ONE (21:26)
[2025-04-22 21:43] LABS: CALCIUM LEVEL 7.5 MG/DL (8.5-10.1); CARBON DIOXIDE LEVEL 22 MMOL/L (20-31); CHLORIDE LEVEL 109 MMOL/L (98-107); CREATININE FOR GFR 0.79 MG/DL (0.55-1.30); GLOMERULAR FILTRATION RATE > 90.0 (>58); MAGNESIUM LEVEL 1.8 MG/DL (1.8-2.4); POTASSIUM SERUM 4.5 MMOL/L (3.5-5.1); SODIUM LEVEL 141 MMOL/L (136-145)
[2025-04-23] VITALS (14 sets, daily range): BP systolic 119–168; BP diastolic 63–81; TEMP 97–98.3; O2SAT 92–100
[2025-04-23 02:02] LABS: BASO # 0.0 10^3/uL (0.0-0.2); BASO % 0.1 % (0.0-1.0); EOS # 0.0 10^3/uL (0.0-0.5); EOS % 0.0 % (0.0-3.0); LYMPH # 1.6 10^3/uL (1.5-5.0); LYMPH % 9.8 % (24.0-44.0); MONO # 1.2 10^3/uL (0.0-0.8); MONO % 7.0 % (2.0-8.0); NEUTROPHILS # 13.4 10^3/uL (1.5-8.5); NEUTROPHILS % 80.4 % (36.0-66.0); PLATELET COUNT, AUTOMATED 117 10^3/uL (150-450)
[2025-04-23 07:38] LABS: BASO # 0.0 10^3/uL (0.0-0.2); BASO % 0.1 % (0.0-1.0); EOS # 0.0 10^3/uL (0.0-0.5); EOS % 0.0 % (0.0-3.0); LYMPH # 1.8 10^3/uL (1.5-5.0); LYMPH % 14.2 % (24.0-44.0); MONO # 0.9 10^3/uL (0.0-0.8); MONO % 7.0 % (2.0-8.0); NEUTROPHILS # 9.7 10^3/uL (1.5-8.5); NEUTROPHILS % 76.8 % (36.0-66.0); PLATELET COUNT, AUTOMATED 117 10^3/uL (150-450)
[2025-04-23 08:05] LABS: ALT/SGPT 46.0 U/L (7.0-40); AST/SGOT 43.0 U/L (<34); CALCIUM LEVEL 7.5 MG/DL (8.5-10.1); CARBON DIOXIDE LEVEL 24.0 MMOL/L (20-31); CHLORIDE LEVEL 105.0 MMOL/L (98-107); CREATININE FOR GFR 0.91 MG/DL (0.55-1.30); GLOMERULAR FILTRATION RATE 81.8 (>58); POTASSIUM SERUM 4.2 MMOL/L (3.5-5.1); SODIUM LEVEL 137.0 MMOL/L (136-145)
[2025-04-23] MEDS: MIRALAX *UNIT DOSE* 17 GM PACKET PO SCH (08:43)
[2025-04-23] MEDS: MAG SULF 1GM/100ML (MAG RUN) 1 GM in IV 1 EA IV SCH (10:29)
[2025-04-23] MEDS: MORPHINE 4 MG/ML 1 ML VIAL IV PRN (14:10)
[2025-04-23] MEDS: KCL 20MEQ IN D5/0.45NS 1000ML 1,000 ML IV SCH (16:53)
[2025-04-23] MEDS: SIMETHICONE 80MG CHEW TAB PO PRN (18:43)
[2025-04-23 21:42] LABS: PLATELET COUNT, AUTOMATED 129 10^3/uL (150-450)
[2025-04-23 22:12] LABS: ALT/SGPT 101 U/L (7.0-40); AST/SGOT 81 U/L (<34); CALCIUM LEVEL 7.3 MG/DL (8.5-10.1); CARBON DIOXIDE LEVEL 24 MMOL/L (20-31); CHLORIDE LEVEL 109 MMOL/L (98-107); CREATININE FOR GFR 0.74 MG/DL (0.55-1.30); GLOMERULAR FILTRATION RATE > 90.0 (>58); POTASSIUM SERUM 3.9 MMOL/L (3.5-5.1); SODIUM LEVEL 141 MMOL/L (136-145)
[2025-04-24] VITALS (17 sets, daily range): BP systolic 124–158; BP diastolic 58–83; TEMP 97.1–98.4; O2SAT 91–98
[2025-04-24] MEDS: MORPHINE 4 MG/ML 1 ML VIAL IV ONE (00:36)
[2025-04-24 04:30] LABS: BASO # 0.0 10^3/uL (0.0-0.2); BASO % 0.1 % (0.0-1.0); EOS # 0.0 10^3/uL (0.0-0.5); EOS % 0.1 % (0.0-3.0); LYMPH # 1.1 10^3/uL (1.5-5.0); LYMPH % 10.2 % (24.0-44.0); MONO # 0.6 10^3/uL (0.0-0.8); MONO % 6.0 % (2.0-8.0); NEUTROPHILS # 8.6 10^3/uL (1.5-8.5); NEUTROPHILS % 82.0 % (36.0-66.0); PLATELET COUNT, AUTOMATED 131 10^3/uL (150-450)
[2025-04-24 04:52] LABS: ALT/SGPT 120 U/L (7.0-40); AST/SGOT 93 U/L (<34); CALCIUM LEVEL 7.1 MG/DL (8.5-10.1); CARBON DIOXIDE LEVEL 24 MMOL/L (20-31); CHLORIDE LEVEL 107 MMOL/L (98-107); CREATININE FOR GFR 0.72 MG/DL (0.55-1.30); GLOMERULAR FILTRATION RATE > 90.0 (>58); POTASSIUM SERUM 3.8 MMOL/L (3.5-5.1); SODIUM LEVEL 139 MMOL/L (136-145)
[2025-04-24] MEDS: ENOXAPARIN 40 MG/0.4 ML SYRINGE (J1650 PER 10MG) SC ONE (12:14)
[2025-04-24] MEDS: ONDANSETRON 4MG/2ML VIAL IV PRN (18:13)
[2025-04-24 18:36] LABS: PLATELET COUNT, AUTOMATED 150 10^3/uL (150-450)
[2025-04-24 18:55] LABS: ALT/SGPT 151 U/L (7.0-40); AST/SGOT 80 U/L (<34); CALCIUM LEVEL 7.5 MG/DL (8.5-10.1); CARBON DIOXIDE LEVEL 26 MMOL/L (20-31); CHLORIDE LEVEL 108 MMOL/L (98-107); CREATININE FOR GFR 0.68 MG/DL (0.55-1.30); GLOMERULAR FILTRATION RATE > 90.0 (>58); POTASSIUM SERUM 3.9 MMOL/L (3.5-5.1); SODIUM LEVEL 141 MMOL/L (136-145)
[2025-04-25 04:00] VITALS: BP 159/69; TEMP 97; O2SAT 98
[2025-04-25 06:09] LABS: BASO # 0.0 10^3/uL (0.0-0.2); BASO % 0.2 % (0.0-1.0); EOS # 0.1 10^3/uL (0.0-0.5); EOS % 0.5 % (0.0-3.0); LYMPH # 1.3 10^3/uL (1.5-5.0); LYMPH % 10.5 % (24.0-44.0); MONO # 0.8 10^3/uL (0.0-0.8); MONO % 6.3 % (2.0-8.0); NEUTROPHILS # 9.6 10^3/uL (1.5-8.5); NEUTROPHILS % 80.6 % (36.0-66.0); PLATELET COUNT, AUTOMATED 169 10^3/uL (150-450)
[2025-04-25 06:29] LABS: ALT/SGPT 112 U/L (7.0-40); AST/SGOT 42 U/L (<34); CALCIUM LEVEL 7.6 MG/DL (8.5-10.1); CARBON DIOXIDE LEVEL 26 MMOL/L (20-31); CHLORIDE LEVEL 103 MMOL/L (98-107); CREATININE FOR GFR 0.71 MG/DL (0.55-1.30); GLOMERULAR FILTRATION RATE > 90.0 (>58); POTASSIUM SERUM 3.8 MMOL/L (3.5-5.1); SODIUM LEVEL 139 MMOL/L (136-145)
[2025-04-25] MEDS: KETOROLAC 30 MG/ML 1 ML VIAL IV PRN (07:30)
[2025-04-25] MEDS: ENOXAPARIN 40 MG/0.4 ML SYRINGE (J1650 PER 10MG) SC SCH (08:54)
[2025-04-25 09:21] VITALS: BP 108/53; TEMP 96.8; O2SAT 96
[2025-04-25 14:08] VITALS: BP 119/63; TEMP 97; O2SAT 98
[2025-04-25 15:17] VITALS: BP 112/52; TEMP 97.6; O2SAT 98
[2025-04-25] MEDS: DIBUCAINE 1% OINTMENT 30 GM TOP PRN (16:49)
[2025-04-25 18:00] VITALS: BP 133/61; TEMP 97.3; O2SAT 99
[2025-04-25] MEDS ORDERED: LR 1,000 ML IV SCH (19:35)
[2025-04-25 20:02] LABS: PLATELET COUNT, AUTOMATED 151 10^3/uL (150-450)
[2025-04-25 20:35] LABS: ALT/SGPT 84 U/L (7.0-40); AST/SGOT 28 U/L (<34); CALCIUM LEVEL 7.6 MG/DL (8.5-10.1); CARBON DIOXIDE LEVEL 26 MMOL/L (20-31); CHLORIDE LEVEL 104 MMOL/L (98-107); CREATININE FOR GFR 0.75 MG/DL (0.55-1.30); GLOMERULAR FILTRATION RATE > 90.0 (>58); POTASSIUM SERUM 3.5 MMOL/L (3.5-5.1); SODIUM LEVEL 140 MMOL/L (136-145)
[2025-04-25] MEDS: NITROFURANTOIN 100 MG CAP PO SCH (20:43)
[2025-04-25] MEDS: PHENAZOPYRIDINE 100 MG TAB PO SCH (20:44)
[2025-04-25] MEDS: KCL 20MEQ IN D5/0.45NS 1000ML 1,000 ML IV SCH (20:45)
[2025-04-25 22:00] VITALS: BP 103/49; TEMP 97.3; O2SAT 98
[2025-04-26 02:00] VITALS: BP 128/66; TEMP 97.6
[2025-04-26 05:53] VITALS: BP 127/60; TEMP 98
[2025-04-26 09:32] LABS: BASO # 0.0 10^3/uL (0.0-0.2); BASO % 0.2 % (0.0-1.0); EOS # 0.1 10^3/uL (0.0-0.5); EOS % 1.2 % (0.0-3.0); LYMPH # 0.8 10^3/uL (1.5-5.0); LYMPH % 15.2 % (24.0-44.0); MONO # 0.4 10^3/uL (0.0-0.8); MONO % 8.7 % (2.0-8.0); NEUTROPHILS # 3.6 10^3/uL (1.5-8.5); NEUTROPHILS % 73.1 % (36.0-66.0); PLATELET COUNT, AUTOMATED 183 10^3/uL (150-450)
[2025-04-26 09:59] VITALS: BP 131/60; O2SAT 100
[2025-04-26 10:04] LABS: ALT/SGPT 66 U/L (7.0-40); AST/SGOT 18 U/L (<34); CALCIUM LEVEL 7.8 MG/DL (8.5-10.1); CARBON DIOXIDE LEVEL 25 MMOL/L (20-31); CHLORIDE LEVEL 109 MMOL/L (98-107); CREATININE FOR GFR 0.72 MG/DL (0.55-1.30); GLOMERULAR FILTRATION RATE > 90.0 (>58); POTASSIUM SERUM 3.9 MMOL/L (3.5-5.1); SODIUM LEVEL 144 MMOL/L (136-145)
[2025-04-26 13:40] VITALS: BP 157/97; O2SAT 97
[2025-04-26 18:00] VITALS: BP 150/70; O2SAT 100
[2025-04-26 22:00] VITALS: BP 120/68; O2SAT 100
[2025-04-27 02:00] VITALS: BP 128/61; O2SAT 97
[2025-04-27 05:59] VITALS: BP 113/50; O2SAT 97
[2025-04-27] MEDS ORDERED: ACETAMINOPHEN 500 MG TAB PO PRN (12:00)
[2025-04-27] MEDS ORDERED: IBUPROFEN 800 MG TAB PO PRN (12:05)
[2025-04-27] MEDS ORDERED: ACETAMINOPHEN 500 MG TAB PO SCH (13:00)
[2025-04-27] MEDS: ACETAMINOPHEN 500 MG TAB PO SCH (13:22)
[2025-04-27 14:00] VITALS: BP 131/78; O2SAT 100
[2025-04-27] MEDS: IBUPROFEN 800 MG TAB PO SCH (14:21)
[2025-04-27] MEDS ORDERED: IBUPROFEN 800 MG TAB PO SCH (16:00)
[2025-04-27 18:00] VITALS: BP 125/57; O2SAT 99
[2025-04-27 22:00] VITALS: BP 132/70; O2SAT 99
[2025-04-28 02:00] VITALS: BP 136/63; O2SAT 100
[2025-04-28 06:00] VITALS: BP 139/68; O2SAT 97
[2025-04-28 10:00] VITALS: BP 141/65
[2025-04-28] MEDS: PHENAZOPYRIDINE 100 MG TAB PO SCH (10:22)
[2025-04-28] MEDS: PANTOPRAZOLE 40MG TAB PO SCH (11:04)
[2025-04-28 14:00] VITALS: BP 139/61; O2SAT 97
[2025-04-28 18:00] VITALS: BP 140/66; O2SAT 99
[2025-04-28 22:00] VITALS: BP 147/84; O2SAT 100
[2025-04-29 06:58] VITALS: BP 121/65; O2SAT 97
[2025-04-29 08:22] VITALS: BP 121/65; TEMP 98.8; O2SAT 97
[2025-04-29 10:00] VITALS: BP 142/58; O2SAT 97
[2025-04-29] MEDS ORDERED: OXYC-517 PO (11:50)
[2025-04-29 14:00] VITALS: BP 145/75; O2SAT 98
[2025-04-29 18:00] VITALS: BP 131/62; O2SAT 98
[2025-04-29 22:00] VITALS: BP 126/69; O2SAT 98
[2025-04-30 05:54] VITALS: BP 124/64; O2SAT 99
[2025-04-30] MEDS ORDERED: [UNRECOGNIZED DRUG - CODE] TP (15:35)
[2025-04-30] MEDS ORDERED: CRAN450T4 PO (15:36)
[2025-04-30 17:59] VITALS: BP 135/64; O2SAT 100
[2025-05-01 02:00] VITALS: BP 121/61; O2SAT 97
[2025-05-01 05:58] VITALS: BP 133/65; O2SAT 100
[2025-05-01 14:00] VITALS: BP 145/65; O2SAT 96
== END 2025-05-01 17:35 | disposition home or self-care (01) | DRG 540 ==
LOC: M LDI 05:25 → M ICU 14:22 → M OBS 04-25 14:42
PROVIDERS: ADMIT Specialist; ATTEND Specialist
PROC: 0TQB0ZZ Repair Bladder, Open Approach (ICD-10-PCS; 2025-04-22)
PROC: 10D00Z1 Extraction of Products of Conception, Low, Open Approach (ICD-10-PCS; principal; 2025-04-22 07:30)
PROC: 0UT90ZZ Resection of Uterus, Open Approach (ICD-10-PCS; 2025-04-22 07:30)
PROC: 30233N1 Transfusion of Nonautologous Red Blood Cells into Peripheral Vein, Percutaneous Approach (ICD-10-PCS; 2025-04-23)
DX: O43.213 Placenta accreta, third trimester (principal); D69.6 Thrombocytopenia, unspecified; O99.112 Other diseases of the blood and blood-forming organs and certain disorders involving the immune mechanism complicating pregnancy, second trimester; Z3A.34 34 weeks gestation of pregnancy; O34.211 Maternal care for low transverse scar from previous cesarean delivery; O32.1XX0 Maternal care for breech presentation, not applicable or unspecified; Z37.0 Single live birth; O9A.22 Injury, poisoning and certain other consequences of external causes complicating childbirth; R57.8 Other shock